=== PATIENT | male | born 1965 | race Caucasian/White ===

== ENCOUNTER 2018-07-26 16:39 | Observation (INO) ==
[2018-07-26] MEDS ORDERED: NITROGLYCERIN 2% OINT 1 INCH/GM PACK TOP STA (17:12)
[2018-07-26] MEDS ORDERED: ASPIRIN 325 MG TABLET PO STA (17:12)
[2018-07-26] MEDS ORDERED: ALUM/MAG/SIMETH/LIDO VISC 1:1 30 ML BOTTLE PO STA (17:12)
[2018-07-26] MEDS ORDERED: MORPHINE 4 MG/1 ML VIAL IV STA (17:12)
[2018-07-26] MEDS ORDERED: ONDANSETRON 4 MG/2 ML VIAL IV STA (17:12)
[2018-07-26 17:21] LABS: Basophils # 0.1 10*3/uL (0.0-0.2); Basophils % 0.7 % (0.0-0.8); Eosinophils # 0.4 10*3/uL (0.0-0.87); Eosinophils % 4.8 % (0.00-10.9); Hematocrit 37.6 VOL% (42.0-52.0); Hemoglobin 12.3 GM/DL (14.0-18.0); Immature Granulocytes % 0.6 %; Immature Granulocytes Absolute 0.05 #; Lymphocytes # 1.5 10*3/uL (1.4-4.0); Lymphocytes % 19.1 % (21.2-54.2); Mean Corpuscular HGB Conc 32.7 GM/DL (32-36); Mean Corpuscular Volume 95.9 FL (87-102); Mean Platelet Volume 9.2 FL (9.6-12.0); Monocytes % 7.2 % (1.7-12.7); Neutrophils % 67.6 % (38.7-73.9); Platelet Count 211 T/CUMM (130-400); Red Blood Count 3.92 MC/CUMM (3.8-5.5); Red Cell Distribution Width 13.2 % (9.3-17.3); White Blood Count 8.1 T/CUMM (4-12)
[2018-07-26 17:35] LABS: PT Patient Result 10.4 SECS
[2018-07-26 17:42] LABS: Alanine Aminotransferase 52 U/L (16-61); Albumin 3.6 G/DL (3.4-5.0); Alkaline Phosphatase 100 U/L (45-117); Aspartate Amino Transferase 19 U/L (0-37); Blood Urea Nitrogen 8 MG/DL (7-18); Calcium 8.4 MG/DL (8.5-10.1); Glucose 126 MG/DL (74-106); Osmolality,Calculated 280.3 MOS/KG (273-304); Total Protein 6.8 G/DL (6.4-8.3)
[2018-07-26] MEDS ORDERED: MORPHINE 4 MG/1 ML VIAL IV PRN (21:03)
[2018-07-26] MEDS ORDERED: ATORVASTATIN 80 MG TABLET PO SCH (21:03)
[2018-07-26] MEDS ORDERED: oxyCODONE IR 5 MG TABLET PO PRN (21:03)
[2018-07-26] MEDS ORDERED: METOPROLOL TARTRATE 25 MG TABLET PO SCH (21:03)
[2018-07-26] MEDS ORDERED: ACETAMINOPHEN 325 MG TABLET PO PRN (21:03)
[2018-07-26] MEDS ORDERED: MIRTAZAPINE 15 MG TABLET PO SCH (21:03)
[2018-07-26] MEDS ORDERED: ENOXAPARIN 40 MG/0.4 ML SYRINGE SUBCUT SCH (21:03)
[2018-07-26] MEDS ORDERED: NITROGLYCERIN SL 0.4 MG TABLET SL PRN (21:03)
[2018-07-26] MEDS ORDERED: ONDANSETRON 4 MG/2 ML VIAL IV PRN (21:03)
[2018-07-26] MEDS: MORPHINE ER 30 MG TABLET PO SCH (21:44)
[2018-07-26] MEDS: tiZANidine 4 MG TABLET PO SCH (21:47)
[2018-07-26] MEDS: NYSTATIN 500,000 UNIT/5 ML UDCUP PO SCH (22:00)
[2018-07-27] MEDS ORDERED: SODIUM CHLORIDE 0.9% 500 ML IV ONE ×2 (00:39→04:10)
[2018-07-27 02:25] LABS: Basophils # 0.1 10*3/uL (0.0-0.2); Basophils % 0.7 % (0.0-0.8); Eosinophils # 0.4 10*3/uL (0.0-0.87); Eosinophils % 4.5 % (0.00-10.9); Hematocrit 35.8 VOL% (42.0-52.0); Hemoglobin 11.6 GM/DL (14.0-18.0); Immature Granulocytes % 0.4 %; Immature Granulocytes Absolute 0.04 #; Lymphocytes # 3.2 10*3/uL (1.4-4.0); Lymphocytes % 35.1 % (21.2-54.2); Mean Corpuscular HGB Conc 32.4 GM/DL (32-36); Mean Corpuscular Volume 96.2 FL (87-102); Monocytes % 6.6 % (1.7-12.7); Neutrophils % 52.7 % (38.7-73.9); Platelet Count 209 T/CUMM (130-400); Red Blood Count 3.72 MC/CUMM (3.8-5.5); Red Cell Distribution Width 13.4 % (9.3-17.3); White Blood Count 9.1 T/CUMM (4-12)
[2018-07-27 02:51] LABS: Calcium 8.3 MG/DL (8.5-10.1); Osmolality,Calculated 277.4 MOS/KG (273-304); Risk Ratio 5.17; VLDL CHOLESTEROL 32.2 MG/DL
[2018-07-27] MEDS: tiZANidine 4 MG TABLET PO SCH ×2 (08:09→14:56)
[2018-07-27] MEDS: MORPHINE ER 30 MG TABLET PO SCH ×2 (08:09→13:03)
[2018-07-27] MEDS: NYSTATIN 500,000 UNIT/5 ML UDCUP PO SCH ×3 (08:09→13:06)
[2018-07-27] MEDS ORDERED: LISINOPRIL 5 MG TABLET PO SCH (09:00)
[2018-07-27] MEDS ORDERED: METOPROLOL TARTRATE 25 MG TABLET PO SCH (09:00)
[2018-07-27 12:14] VITALS: BP 126/66
== END 2018-07-27 15:41 | disposition home or self-care (01) ==
LOC: EDBD → EDUNIT# → N.EDINP 16:39 → N.ED 16:39 → N.4E 20:47
PROVIDERS: ADMIT Internal Medicine; ATTEND Internal Medicine